=== PATIENT | male | born 1985 | race Caucasian/White ===

== ENCOUNTER 2022-04-17 14:24 | Emergency (ER) | payer BC, SELFPAY ==
[2022-04-17 14:41] VITALS: BP 149/89; PULSE 63; RESP 18; TEMP 36.6; O2SAT 96; BMI 31.6
--- NOTE | 2022-04-17 15:28 | XR_ITS ---
FINAL REPORT CLINICAL HISTORY: trauma FINDINGS: 3 views of the right hand were obtained. There is no acute fracture or dislocation. The 5th PIP joint is held in angle. There is no soft tissue abnormality. IMPRESSION: No acute fracture. Question flexion deformity of the 5th PIP joint versus positioning. Reviewed, Interpreted and Dictated by Garfield Mckeon III, MD Transcribed by Donal Dolan Authenticated and [facility]
--- NOTE | 2022-04-17 15:30 | [facility].EDWNDL ---
Discharge Plan Disposition Patient Disposition: Home, Self-Care Condition: Good Prescriptions Prescriptions: New cephalexin 500 mg capsule 500 mg PO TID 7 Days Qty: 21 0RF Referrals Follow up/Referrals: Hallie Bejarano PA [Primary Care Provider] - See instructions Activity Restrictions/Add. Instructions Additional Instructions/Restrictions: Follow-up with the [facility]. Call tomorrow for an appointment. Elevate the hand as needed for swelling. Cleanse the wound daily with running water do not soak the hand. After cleansing apply antibiotic ointment and a nonadhesive dressing such as Telfa. Clinical Impressions Clinical Impression: Laceration Instructions Patient Instructions: DI for Laceration Repair Discharge ED Provider: Mateo Johnson Wound/Laceration HPI General Chief Complaint: Wound/Laceration Stated Complaint: [id number] right middle finger cut,home accide Time Seen by Provider: 04/17/22 18:00 Mode of Arrival: Ambulatory Limitations: No Limitations Description of Symptoms (Recalled from ER Triage Doc. by RN): Patient reports he was sharpening a garden tool and cut his right middle finger. History of Present Illness HPI narrative: Patient presents with a laceration to the dorsal aspect of the right middle finger sustained when he inadvertently cut himself with a knife earlier today. He states the blade was tomas. He denies additional injuries or associated focal neurological symptoms. Symptoms are described as mild to moderate without exacerbating or alleviating factors. There is no injuries noted. Related Data Previous Rx's Medication Instructions Recorded cephalexin 500 mg capsule 500 mg PO TID 7 days #21 caps 04/17/22 Allergies Allergy/AdvReac Type Severity Reaction Status Date / Time No Known Allergies Allergy Verified 04/17/22 17:47 [facility] Social History Smoking Status: Never smoker alcohol intake: never current occupational status: unemployed Travel in the last 8 weeks: None ROS Obtained: Yes All systems reviewed & no additional complaints except as documented Constitutional Constitutional: Reports system reviewed and no additional complaints, except as documented Physical Exam General General appearance: alert and in no apparent distress Head Head exam: atraumatic Eye Eye exam: Present normal appearance ENT ENT exam: Present normal exam Neck Neck exam: Present normal inspection Chest Chest inspection: Present normal inspection Respiratory Respiratory exam: Present normal lung sounds bilaterally Cardiovascular Cardiovascular exam: Present regular rate and normal rhythm Abdominal Exam Abdominal exam: Present soft; Absent tenderness Expanded Upper Extremity Exam Right: Hand exam: Present other (To the dorsal aspect of the right middle finger there is a longitudinal laceration approximate 2.5 cm in length over the occipital phalanx. He has full range of motion including full extension with brisk capillary refill. There is no bone exposure.) Back Exam Back exam: Present normal inspection Neurological Exam Neurological exam: Present alert and oriented X3 Skin Skin exam: Present warm and dry Medical Decision Making Malcom Inquiry Pt receiving controlled substance: No Vital Signs: 04/17/22 14:41 Temperature 97.9 F Temperature Source Oral Pulse Rate [Left Brachial] 63 Respiratory Rate 18 Blood Pressure [Left Arm] 149/89 H Blood Pressure Mean [Left Arm] 109 Blood Pressure Source [Left Arm] Automatic Cuff Blood Pressure Position [Left Arm] Sitting 02 Sat by Pulse Oximetry 96 Oxygen Delivery Method Room Air Orders (Tests/Meds): ED MEDICATIONS Discontinued Medications Generic Name Dose Route Start Last Admin Trade Name Freq PRN Reason Stop Dose Admin Neomycin/Polymyxin/Bacitracin 1 each 04/17/22 17:57 Neosporin Ointment 0.9gm Udp TP 04/17/22 17:58
--- NOTE | 2022-04-17 17:39 | PC.NURSE ---
at bedside suturing
[2022-04-17 18:10] VITALS: BP 131/78; PULSE 65; RESP 17; TEMP 36.6; O2SAT 98
== END 2022-04-17 18:12 | disposition home or self-care (01) ==
PROVIDERS: Emergency Provider Emergency Medicine; PCP Physician Assistant Medical
DX: S61.212A Laceration without foreign body of right middle finger without damage to nail, initial encounter (principal); W26.0XXA Contact with knife, initial encounter; Y92.019 Unspecified place in single-family (private) house as the place of occurrence of the external cause
CPT/HCPCS: 12002; 73120; 90471; 90715; 99283

== ENCOUNTER 2023-08-30 20:42 | Outpatient (CLI) | payer BC, SELFPAY | END 2023-08-30 23:59 | LOC: LAB.DROPOF 20:43 | PROVIDERS: PCP Student in an Organized Health Care Education/Training Program; Visit Provider Student in an Organized Health Care Education/Training Program | DX: R05.9 Cough, unspecified (principal); J02.9 Acute pharyngitis, unspecified | CPT/HCPCS: 87070; 87635 ==